=== PATIENT | female | born 1940 | race Caucasian/White ===

== ENCOUNTER → 2017-09-15 | Outpatient (CLI) | payer MEDICARE | LOC: M RAD 10:34 | DX: Z12.31 Encounter for screening mammogram for malignant neoplasm of breast (principal) | CPT/HCPCS: 77067 ==

== ENCOUNTER → 2017-09-22 | Outpatient (REF) | payer MEDICARE ==
[2017-09-22 19:05] LABS: D-DIMER QUANT 588.9 ng/ml (<500)
[2017-09-27 09:17] LABS: DRVV SCREEN 44.2 SEC; PTT LUPUS TYPE ANTICOAG SCREEN 1.1 (0-1.2)
== END ==
LOC: M LAB REF 17:20
DX: I26.99 Other pulmonary embolism without acute cor pulmonale (principal)
CPT/HCPCS: 86147

== ENCOUNTER → 2018-01-05 | Outpatient (REF) | payer MEDICARE | LOC: M LAB REF 18:28 | DX: E04.1 Nontoxic single thyroid nodule (principal) | CPT/HCPCS: 88173 ==

== ENCOUNTER → 2018-03-21 | Outpatient (REF) | payer MEDICARE | LOC: M LAB REF 11:44 | DX: E04.1 Nontoxic single thyroid nodule (principal) | CPT/HCPCS: 88173 ==

== ENCOUNTER → 2018-11-24 | Outpatient (CLI) | payer MEDICARE ==
[~2018-11-24] MED LIST: ACET1TAB55 PO; BRIL90TA PO; BYST5TAB2 PO; CHLO25TA PO; HYDR500C3 PO; IRBE150T12 PO; ISOS30TA4 PO; MULTCAP PO; NITR0.4S14 SL; ROSU20TA4 PO; VITA100054 PO; XARE20TA PO
--- NOTE | 2018-11-24 18:04 | REP ---
RENAL ULTRASOUND AND RENAL ARTERY DOPPLER ULTRASOUND: 11/24/2018. Clinical history: Chronic renal disease. Findings: No prior study. Right kidney is 9.9 x 4.5 x 4.2 cm and the left is 9.5 x 4.1 x 3.3 cm. Cortical echogenicity is marginally increased. Mild cortical atrophy on the left. Central sinus fat is noted to be increased on the left. In the upper pole of the left kidney is a 1.8 x 1.8 cm cyst. It is an incidental finding. There is a 11 mm calcification in the spleen. Bladder was grossly intact. No solid mass. No hydronephrosis. No stone. Impression: 1. Mild cortical atrophy on the left with slight elevation of the cortical echogenicity suggesting chronic kidney disease. 2. Upper pole cyst on the left 1.8 cm. No hydronephrosis, stone or solid mass. Renal artery Doppler ultrasound: Aortic velocity at the renal artery level 94 cm/SRight renal artery: Proximal 162 cm/S, mid 116 cm/S, distal 119 cm/S Left renal artery: Proximal 169 cm/S, mid and distal not seen due to gas shadowing. Right kidney: 9.5 cm upper mid lower pole. Resistive index upper 0.72 mid 0.73 lower 0.76Acceleration time upper 0.047 mid 0.053 lower 0.042 Left kidney: 9.5 cm upper mid lower pole Resistive index upper 0.61 mid 0.59 lower 0.56Acceleration time: Upper not seen and mid 0.14 sec lower 0.16 sec Waveform analysis shows a decreased resistive index and loss of the early systolic peak but vessels difficult to image due to poor perfusion Impression: 1. Right kidney with no direct or indirect evidence of renal artery stenosis. 2. Left kidney with decreased resistive index and poor early systolic peak with poor perfusion and loss of cortical thickness. I suspect there may be renal artery stenosis but difficult to confirm by ultrasound. CTA, MRA or angio may be helpful. Electronically Signed by Julian Brand MD 11/25/2018 11:32 A
== END ==
LOC: M RAD 08:47
PROVIDERS: ATTEND Internal Medicine Nephrology
DX: N18.3 Chronic kidney disease, stage 3 (moderate) (principal); N28.1 Cyst of kidney, acquired; N26.1 Atrophy of kidney (terminal)

== ENCOUNTER → 2021-01-20 | Outpatient (REF) | payer MEDICARE ==
[~2021-01-20] MED LIST changes: +BYST10TA2 PO; +CARV25TA PO; +CLOP75TA2 PO; +COVI100V IM; +D31000TA2 PO; -IRBE150T12 PO; +IRBE150T7 PO; +ISOS1TAB35 PO; -ISOS30TA4 PO; +MULT-90 PO; +NORV5TAB PO; -ROSU20TA4 PO; +ROSU20TA5 PO
== END ==
LOC: M LAB REF 17:05
PROVIDERS: ATTEND Internal Medicine Nephrology
DX: N18.32 Chronic kidney disease, stage 3b (principal); E83.42 Hypomagnesemia

== ENCOUNTER → 2023-10-25 | Outpatient (CLI) | payer MEDICARE ==
[~2023-10-25] MED LIST changes: +ALBU8.5H INH; +AMIO200T49 PO; +ASPI81TA26 PO; +AZEL1SPR3; +CARD180C4 PO; +CARV6.25; -D31000TA2 PO; +DOXY100C3; +ECOT81TA5 PO; +IRBE150T27 PO; -IRBE150T7 PO; +IRBE75TA11 PO; +LIDOCAINE 1% MDV 20ML VIAL As Ordered ONE; +OXYGEN; +PANT40TA29 PO; +RISATAB3 PO; -ROSU20TA5 PO; +ROSU20TA61 PO; +TORS10TA3 PO; +VITA100093 PO; +[UNRECOGNIZED DRUG - OTHER] PO
[2023-10-25 11:50] VITALS: TEMP 97.2
[2023-10-25 12:51] LABS: BASO # 0.1 10^3/uL (0.0-0.2); BASO % 0.5 % (0.0-1.0); EOS # 0.2 10^3/uL (0.0-0.5); EOS % 1.1 % (0.0-3.0); HEMATOCRIT 37.3 % (36.0-47.0); HEMOGLOBIN 11.5 g/dl (12.0-15.5); LYMPH # 1.3 10^3/uL (1.5-5.0); LYMPH % 6.6 % (24.0-44.0); MEAN CORPUSCULAR HEMOGLOBIN 32.5 pg (27.0-33.0); MEAN CORPUSCULAR HGB CONC 30.8 g/dl (32.0-36.5); MEAN CORPUSCULAR VOLUME 105.4 fl (80.0-96.0); MONO # 1.2 10^3/uL (0.0-0.8); MONO % 5.7 % (2.0-8.0); NEUTROPHILS % 84.3 % (36.0-66.0); PLATELET COUNT, AUTOMATED 497 10^3/uL (150-450); RED BLOOD COUNT 3.54 10^6/uL (4.00-5.40); WHITE BLOOD COUNT 20.2 10^3/uL (4.0-10.0)
[2023-10-25 13:10] VITALS: BP 122/57; O2SAT 99
== END ==
LOC: M IRPRO 11:38
PROVIDERS: ATTEND Internal Medicine Medical Oncology
DX: D72.829 Elevated white blood cell count, unspecified (principal)